=== PATIENT | male | born 1965 | race African-American/Black ===

== ENCOUNTER 2023-11-11 21:48 | Emergency (ER) | payer MEDICAID ==
[~2023-11-11] VITALS: Ht 180.3 cm; Wt 86.4 kg
[2023-11-11 21:57] VITALS: TEMP 98.8
[2023-11-12 00:01] VITALS: BP 125/103; PULSE 100; RESP 19; O2SAT 99
[2023-11-12] MEDS ORDERED: TRAM50TA5 PO (03:34)
[2023-11-12] MEDS: TraMADol HCL 50 MG TABLET PO ONE (03:55)
== END 2023-11-12 03:55 | disposition home or self-care (01) ==
LOC: EMS 21:48
DX: S46.002A Unspecified injury of muscle(s) and tendon(s) of the rotator cuff of left shoulder, initial encounter (principal); M75.22 Bicipital tendinitis, left shoulder; F12.90 Cannabis use, unspecified, uncomplicated; X58.XXXA Exposure to other specified factors, initial encounter; Y93.89 Activity, other specified; Y92.89 Other specified places as the place of occurrence of the external cause; Y99.8 Other external cause status
CPT/HCPCS: 99283